=== PATIENT | male | born 1930 | race Caucasian/White ===

== ENCOUNTER → 2017-10-25 | Outpatient (CLI) | payer BC | END | disposition home or self-care (01) | LOC: ECHO 10:38 | DX: I08.1 Rheumatic disorders of both mitral and tricuspid valves (principal); I42.9 Cardiomyopathy, unspecified | CPT/HCPCS: 93306 ==

== ENCOUNTER → 2018-10-01 | Outpatient (CLI) | payer BC ==
--- NOTE | 2018-10-01 17:21 | CARD ---
MR#: [id number] Date of Study: 10/01/2018 Ordering Physician: VIDAL HODGES, Referring Physician: VIDAL HODGES Tech: Caren Kirkland RDCS APPROVED REPORT EXAM: Two-dimensional and M-mode echocardiogram with Doppler and color Doppler. Other Information Quality : Good INDICATION Cardiomyopathy Hx: Cardiac Tumor RISK FACTORS Smoking 2D DIMENSIONS RVDd2.7 (2.9-3.5cm)Left Atrium(2D)3.4 (1.6-4.0cm) IVSd1.0 (0.7-1.1cm)Aortic Root(2D)2.4 (2.0-3.7cm) LVDd4.7 (3.9-5.9cm)LVOT Diameter2.4 (1.8-2.4cm) PWd1.1 (0.7-1.1cm)LVDs4.0 (2.5-4.0cm) FS (%) 15.4 %SV34.0 ml Aortic Valve AoV Peak Claus.130.0cm/sAoV VTI25.9cm AO Peak GR.6.8mmHgLVOT Peak Claus.90.9cm/s AO Mean GR.3mmHgAVA (VMAX)3.13cm2 BRANDEN (VTI)3.40cm2 Mitral Valve MV E Xuhdqdky58.6cm/sMV DECEL JTPL146cs MV A Tkgejkkv19.6cm/sE/A Ratio1.2 Tricuspid Valve TR P. Wzyuuqjp840ah/sRAP QCFAQTTK5dsLb TR Peak Gr.70yxVxXNZJ95pxOb Pulmonary Vein S1 Aeyhkesd36.7cm/sD2 Biqsnypi65.1cm/s LEFT VENTRICLE The left ventricle is normal size. There is normal left ventricular wall thickness. Left ventricular systolic function is moderately reduced. The Ejection Fraction is 35-40%. There is global hypokinesis of the left ventricle. Transmitral Doppler flow pattern is Grade II-pseudonormal filling dynamics. RIGHT VENTRICLE The right ventricle is normal size. The right ventricular systolic function is normal. ATRIA The left atrium size is normal. The right atrium size is normal. The interatrial septum is intact wit h no evidence for an atrial septal defect or patent foramen ovale as noted on 2-D or Doppler imaging. AORTIC VALVE The aortic valve is calcified but opens well. Doppler and Color Flow revealed no significant aortic r egurgitation. There is no significant aortic valvular stenosis. MITRAL VALVE The mitral valve is calcified but opens well. There is no evidence of mitral valve prolapse. There is no mitral valve stenosis. Doppler and Color-flow revealed mild mitral regurgitation. TRICUSPID VALVE The tricuspid valve is normal in structure and function. Doppler and Color Flow revealed mild tricusp id regurgitation. The PA pressure was greater than 50 mmHg. There is no tricuspid valve stenosis. PULMONIC VALVE The pulmonic valve is not well visualized. Doppler and Color Flow revealed mild pulmonic valvular reg urgitation. There is no pulmonic valvular stenosis. GREAT VESSELS The aortic root is normal in size. The ascending aorta is mildly dilated at 3.5 cm. The IVC is normal in size and collapses >50% with inspiration. PERICARDIAL EFFUSION There is no evidence of significant pericardial effusion. Critical Notification Critical Value: No <Conclusion> The left ventricle is normal size. Left ventricular systolic function is moderately reduced. The Ejection Fraction is 35-40%. There is global hypokinesis of the left ventricle. There is no significant aortic valvular stenosis. Doppler and Color Flow revealed no significant aortic regurgitation. Doppler and Color-flow revealed mild mitral regurgitation. Doppler and Color Flow revealed mild tricuspid regurgitation. The PA pressure was greater than 50 mmHg. The ascending aorta is mildly dilated at 3.5 cm. Signed by : Jimenez Guerra MD Electronically Approved : 10/01/2018 17:19:26
== END | disposition home or self-care (01) ==
LOC: ECHO 13:55
PROVIDERS: ATTEND Internal Medicine Cardiovascular Disease
DX: I08.1 Rheumatic disorders of both mitral and tricuspid valves (principal); I42.9 Cardiomyopathy, unspecified; F17.200 Nicotine dependence, unspecified, uncomplicated; Z86.018 Personal history of other benign neoplasm
CPT/HCPCS: 93306

== ENCOUNTER → 2019-05-03 | Outpatient (CLI) | payer BC ==
--- NOTE | 2019-05-03 12:08 | KCIC ---
Axial noncontrast CT imaging of the chest was obtained. Coronal and sagittal reformats are available. COMPARISON: None. INDICATION: Shortness of breath with tobacco use history. FINDINGS: In the left lobe of the thyroid there is a 2.3 cm hypodense lesion. In the superior pole of the right thyroid lobe there is a 2.8 cm hypodense, heterogeneous lesion. No radiologically significant axillary or mediastinal lymphadenopathy. Evaluation of the hilum is limited without intravenous contrast. A sending thoracic aorta is ectatic measuring 3.7 cm. The heart is unenlarged. There is calcific coronary artery disease. The great vessel origins are moderately calcified. Partially visualized upper abdomen is unremarkable in appearance. No pneumothorax, effusion, airspace or interstitial disease. Bilaterally there is moderate paraseptal and centrilobular emphysematous changes. Sternotomy wires are identified. Bony structures are unremarkable in appearance. IMPRESSION: 1. Bilateral moderate paraseptal and centrilobular emphysematous change. 2. Bilateral thyroid nodules. Consider ultrasound imaging for further evaluation. 3. Calcific coronary artery disease with sternotomy changes identified. Electronically signed by: Khoa Coker MD (05/03/2019 12:06 PM) [facility]
== END | disposition home or self-care (01) ==
LOC: KCIC CT 09:59
PROVIDERS: ATTEND Internal Medicine Pulmonary Disease
DX: J43.2 Centrilobular emphysema (principal); E04.2 Nontoxic multinodular goiter; I25.10 Atherosclerotic heart disease of native coronary artery without angina pectoris; I77.810 Thoracic aortic ectasia; Z87.891 Personal history of nicotine dependence
CPT/HCPCS: 71250

== ENCOUNTER → 2019-10-18 | Outpatient (CLI) | payer BC ==
--- NOTE | 2019-10-21 11:58 | CARD ---
MR#: [id number] Date of Study: 10/18/2019 Ordering Physician: VIDAL HODGES, Referring Physician: VIDAL HODGES, Tech: Tabitha Barkley APPROVED REPORT EXAM: Two-dimensional and M-mode echocardiogram with Doppler and color Doppler. Other Information Quality : AverageHR: 32bpm INDICATION Cardiomyopathy RISK FACTORS Hyperlipidemia Smoking 2D DIMENSIONS RVDd3.1 (2.9-3.5cm)Left Atrium(2D)3.2 (1.6-4.0cm) IVSd1.5 (0.7-1.1cm)Aortic Root(2D)3.4 (2.0-3.7cm) LVDd4.6 (3.9-5.9cm)LVOT Diameter2.0 (1.8-2.4cm) PWd1.0 (0.7-1.1cm)LVDs3.7 (2.5-4.0cm) FS (%) 18.8 %SV37.0 ml LVEF(%)39.0 (>50%) Aortic Valve AoV Peak Claus.127.4cm/sAoV VTI30.6cm AO Peak GR.6.5mmHgLVOT Peak Claus.93.4cm/s LVOT VTI 21.01cmAO Mean GR.3mmHg BRANDEN (VMAX)1.13ty4QDV (VTI)2.15cm2 Mitral Valve MV E Jmtbycyz07.8cm/sMV DECEL TSOJ948px MV A Ejvmycvo81.6cm/sMV E Mean Gr.1mmHg MV YRS93xqM/A Ratio0.9 MVA (PHT)3.07cm2 TDI E/Lateral E'5.4E/Medial E'7.4 Pulmonary Valve PV Peak Lpsbeywo684.9cm/sPV Peak Grad.4mmHg Tricuspid Valve TR P. Nhwnylkh028nb/sRAP OQNFJXEG7odTg TR Peak Gr.75dfEjIACT60xtQb Pulmonary Vein S1 Bodivinn21.9cm/sD2 Adoqeubv29.8cm/s PVa wqkaqaeg158cjyb LEFT VENTRICLE The left ventricle is normal size. There is mild to moderate concentric left ventricular hypertrophy. The systolic function is moderately impaired. EF 30-35% Wall motion consistent with conduction abnor mality. There is also global hypokinesis. Transmitral Doppler flow pattern is Grade I-abnormal relaxa tion pattern. RIGHT VENTRICLE The right ventricle is borderline dilated. There is normal right ventricular wall thickness. The righ t ventricular systolic function is normal. ATRIA The left atrium size is normal. The right atrium is mildly dilated. The interatrial septum is intact with no evidence for an atrial septal defect or patent foramen ovale as noted on 2-D or Doppler imagi ng. AORTIC VALVE The aortic valve is thickened but opens well. Doppler and Color Flow revealed trace aortic regurgitat ion. There is no significant aortic valvular stenosis. MITRAL VALVE The mitral valve is normal in structure and function. There is no evidence of mitral valve prolapse. There is no mitral valve stenosis. Doppler and Color-flow revealed mild mitral regurgitation. TRICUSPID VALVE The tricuspid valve is not well visualized. Doppler and Color Flow revealed mild tricuspid regurgitat ion with an estimated PAP of 49 mmHg. There is no tricuspid valve stenosis. PULMONIC VALVE The pulmonic valve is not well visualized. Doppler and Color Flow revealed trace pulmonic valvular re gurgitation. There is no pulmonic valvular stenosis. GREAT VESSELS The aortic root is normal in size. The IVC is normal in size and collapses >50% with inspiration. PERICARDIAL EFFUSION There is no evidence of significant pericardial effusion. Critical Notification Critical Value: No <Conclusion> The systolic function is moderately impaired. EF 30-35% Wall motion consistent with conduction abnormality. There is also global hypokinesis. Doppler and Color Flow revealed mild tricuspid regurgitation with an estimated PAP of 49 mmHg. Signed by : Carmelo Ornelas, Electronically Approved : 10/18/2019 13:17:09
== END | disposition home or self-care (01) ==
LOC: ECHO 10:33
PROVIDERS: ATTEND Internal Medicine Cardiovascular Disease
DX: I08.1 Rheumatic disorders of both mitral and tricuspid valves (principal); I42.9 Cardiomyopathy, unspecified; E78.5 Hyperlipidemia, unspecified; F17.210 Nicotine dependence, cigarettes, uncomplicated
CPT/HCPCS: 93306

== ENCOUNTER → 2019-11-01 | Outpatient (CLI) | payer BC ==
[~2019-11-01] MED LIST: REGADENOSON 0.4 MG/5 ML DISP.SYRIN. IV ONE
--- NOTE | 2019-11-01 11:35 | RAD ---
MR#: [id number] Date of Study: 11/01/2019 Ordering Physician: VIDAL HODGES, Referring Physician: SATHYA VARGAS Tech: EDITH Thomas APPROVED REPORT Test Type: Pharmacological Stress Nurse/Tech: Alina Tyson RN Test Indications: Cardiomyopathy Cardiac History: Hypertension,asthma,COPD,heart disease Medications: See Electronic Medical Record Medical History: See Electronic Medical Record Resting ECG: SR with BBB and PVC's, sometimes a-fib (in and out) Resting Heart Rate: 63 bpm Resting Blood Pressure: 133/65mmHg Pretest Chest Pain: No chest pain Nurse/Tech Notes S1,S2 and lungs diminished throughout. Consent: The procedure was explained to the patient in lay terms. Informed consent was witnessed. Vin eout was entered into [employer]. History and Stress Test performed by EDITH Thomas Pharm. Details Pharmacologic stress testing was performed using 0.4mg per 5ml of regadenoson given intravenously ove r 7-10 seconds. Stress Symptoms Dyspnea,headache POST EXERCISE Reason for Termination: Infusion complete Target HR: Yes Max HR: 118 bpm 106% of Maximum Predicted HR: 111 bpm Max Blood Pressure: 149/56mmHg Blood Pressure response to exercise: Normal blood pressure response during stress. Heart Rate response to exercise: WNL Chest Pain: No. Arrhythmia: Yes. PVCs ST Change: Yes. slight ST change in II,III, and aVF with stress which returned to baseline by end of study. INTERPRETATION Stress EKG Conclusion: Nondiagnostic stress EKG due to baseline left bundle-branch block. Imaging Protocol IMAGE PROTOCOL: Rest Tc-99m/stress Tc-99m 1 day Rest: Stress: Viability: Radiopharm.Tc99m IemkdbbykKp23u Sestamibi Rpsw90xWk 33mCi Duration 15min. 13min. Img Date 11/01/2019 11/01/2019 Rest Admin Site:IV - Left ForearmAdministrator:EDITH Thomas Stress Admin Site: IV - Left ForearmAdministrator: TUSHAR De Los Santos, ARRT (R)(N) STRESS DATA End Diast. Vol.123.0mlLVEDV index BSA68.0ml End Syst. Vol.67.0mlLVESV index BSA37.0ml Myocardial Ykif270.0gEject. Nlpjwcfr73.0% Stress Scores Regional WT1.00Summed WT16.00 Regional WM0.00Summed WM25.00 LV Perfusion Normal myocardial perfusion at stress. Rest images are degraded due to motion. Wall Motion Mild global LV dysfunction likely due to left bundle branch block. EF 47%. LV Perf. Quant 17 Seg. SSS7.00 17 Seg. SRS16.00 17 Seg. SDS0.00 Stress Defect Extent (% LAD)6.90Rest Defect Extent (% LAD)41.30Rev. Defect Extent (% LAD)0.00 Stress Defect Extent (% LCX) 21.30Rest Defect Extent (% LCX)28.80Rev. Defect Extent (% LCX)0.00 Stress Defect Extent (% RCA)1.10Rest Defect Extent (% RCA)44.40Rev. Defect Extent (% RCA)0.00 Stress Defect Extent (% ECTOR)12.40Rest Defect Extent (% ECTOR)42.60Rev. Defect Extent (% ECTOR)0.00 Other Information Quality:Poor Risk Assessment: Low Risk Conclusion 1. Nondiagnostic stress EKG due to baseline left bundle-branch block 2. Normal perfusion at stress, rest images are degraded due to motion. 3. Mild LV dysfunction with ejection fraction of 47% 4. Low risk study overall. Signed by : Carmelo Ornelas, Electronically Approved : 11/01/2019 11:35:00
== END | disposition home or self-care (01) ==
LOC: NM 07:47
PROVIDERS: ATTEND Internal Medicine Cardiovascular Disease
DX: I50.1 Left ventricular failure, unspecified (principal); I44.7 Left bundle-branch block, unspecified; I42.9 Cardiomyopathy, unspecified; R06.00 Dyspnea, unspecified; R51 Headache; J44.9 Chronic obstructive pulmonary disease, unspecified
CPT/HCPCS: 78452; 93017; A9500; J2785